=== PATIENT | male | born 1960 | race African-American/Black ===

== ENCOUNTER 2019-01-31 11:35 | Emergency (ER) | payer SELFPAY ==
[~2019-01-31] VITALS: Ht 172.7 cm; Wt 80.3 kg
[~2019-01-31 11:35] MED LIST: HYDR-4134 MT; LISI40TA4 MT
[2019-01-31] MEDS ORDERED: LISINOPRIL 20MG TABLET PO ONE (14:30)
[2019-01-31 14:44] LABS: BASOPHILS % 0.4 % (0.0-2.0); EOSINOPHILS % 5.9 % (0.0-5.0); HEMATOCRIT. 41.5 % (42.0-52.0); HEMOGLOBIN. 13.9 g/dL (14.0-18.0); MEAN CORPUSCULAR HEMOGLOBIN 28.3 pg (28.0-32.0); MEAN CORPUSCULAR VOLUME 84.6 fL (80.0-94.0); MEAN PLATELET VOLUME 9.7 fl (7.4-10.4); MONOCYTES % 10.6 % (2.0-8.0); NEUTROPHILS % 35.1 % (40.0-76.0); PLATELET 155 x1000/uL (130-400); RED CELL DISTRIBUTION WIDTH 14.3 % (11.6-14.6)
[2019-01-31 14:50] LABS: CHLORIDE 109 mEq/L (98-107)
[2019-01-31 15:15] VITALS: BP 164/92
== END 2019-01-31 16:06 | disposition home or self-care (01) ==
LOC: ER 11:35
DX: I10 Essential (primary) hypertension (principal); Z91.19 Patient's noncompliance with other medical treatment and regimen
CPT/HCPCS: 36415; 80053; 85025; 99283; Z7610

== ENCOUNTER 2019-04-25 13:40 | Emergency (ER) | payer MEDICAID ==
[2019-04-25 14:27] LABS: BASOPHILS % 0.8 % (0.0-2.0); EOSINOPHILS % 6.6 % (0.0-5.0); HEMATOCRIT. 41.4 % (42.0-52.0); LYMPHOCYTES % 45.9 % (20.0-50.0); MEAN CORPUSCULAR HEMOGLOBIN 28.3 pg (28.0-32.0); MEAN CORPUSCULAR VOLUME 83.6 fL (80.0-94.0); MEAN PLATELET VOLUME 8.8 fl (7.4-10.4); MONOCYTES % 9.5 % (2.0-8.0); NEUTROPHILS % 37.2 % (40.0-76.0); PLATELET 177 x1000/uL (130-400); RED BLOOD CELL COUNT 4.96 mill/uL (4.7-6.1)
[2019-04-25 14:30] LABS: CHLORIDE 109 mEq/L (98-107)
[2019-04-25 14:35] LABS: ETHANOL BLOOD < 10 mg/dL
[2019-04-25 14:43] VITALS: BP 153/93
[2019-04-25] MEDS ORDERED: LISINOPRIL 10MG TABLET PO ONE (16:00)
[2019-04-25] MEDS ORDERED: TRAMADOL 50MG TABLET PO ONE (16:00)
[2019-04-25] MEDS ORDERED: POTASSIUM CHLORIDE 20MEQ TABLET SR PO ONE (16:45)
== END 2019-04-25 18:18 | disposition home or self-care (01) ==
LOC: ER 13:40
DX: R07.89 Other chest pain (principal); I10 Essential (primary) hypertension
CPT/HCPCS: 36415; 71045; 80320; 83880; 84484; 93005; 99284; G0480

== ENCOUNTER 2020-02-18 10:26 | Emergency (ER) | payer MEDICAID ==
[~2020-02-18] VITALS: Ht 172.7 cm; Wt 82.0 kg
[2020-02-18] MEDS ORDERED: LISINOPRIL 40MG TABLET PO ONE (11:15)
[2020-02-18 12:20] LABS: BASOPHILS % 0.8 % (0.0-2.0); EOSINOPHILS % 5.2 % (0.0-5.0); HEMATOCRIT. 41.6 % (42.0-52.0); HEMOGLOBIN. 13.9 g/dL (14.0-18.0); MEAN CORPUSCULAR HEMOGLOBIN 28.2 pg (28.0-32.0); MEAN CORPUSCULAR VOLUME 84.2 fL (80.0-94.0); MEAN PLATELET VOLUME 9.2 fl (7.4-10.4); MONOCYTES % 10.1 % (2.0-8.0); NEUTROPHILS % 43.9 % (40.0-76.0); PLATELET 178 x1000/uL (130-400); RED BLOOD CELL COUNT 4.94 mill/uL (4.7-6.1)
[2020-02-18 12:24] LABS: CHLORIDE 108 mEq/L (98-107)
[2020-02-18] MEDS ORDERED: CLONIDINE 0.1MG TABLET PO ONE (13:00)
[2020-02-18 13:08] VITALS: BP 189/99
== END 2020-02-18 13:12 | disposition home or self-care (01) ==
LOC: ER 10:26
DX: I16.0 Hypertensive urgency (principal)
CPT/HCPCS: 36415; 80053; 85025; 93005; 99284